=== PATIENT | female | born 2000 | race Caucasian/White ===

== ENCOUNTER 2019-12-12 19:04 | Emergency (ER) | payer SELFPAY ==
[~2019-12-12] VITALS: Ht 165.1 cm; Wt 59.0 kg
--- NOTE | 2019-12-12 19:24 | PHYS DOC ---
General Adult EDM: Chief Complaint: ANXIETY/PANIC ATTACK HPI: HPI: Patient is a 19 year old female with a past medical history of panic attacks presents via EMS for evaluation after a panic attack. Patient works at [employer]. Per EMS prior to arrival patient was yelled at by a customer. Patient started to hyperventilate and then passed out. EMS states patient has had 2-3 episodes while in transport to the hospital. On arrival patient was yelling and screaming. Her heart rate was in the 180s to 190s. Patient was tachypneic and then passed out. After awaking patient seemed calm heart rate in the 120s. Patient nonverbal. Patient moves all extremities no focal weakness. Review of Systems: Review of Systems: Noncontributory due to medical condition Heart Score: Risk Factors: Risk Factors: DM, Current or recent (<one month) smoker, HTN, HLP, family his tory of CAD, obesity. Risk Scores: Score 0 - 3: 2.5% MACE over next 6 weeks - Discharge Home Score 4 - 6: 20.3% MACE over next 6 weeks - Admit for Clinical Observation Score 7 - 10: 72.7% MACE over next 6 weeks - Early Invasive Strategies Physical Exam: PE: Constitutional: Well developed, well nourished, no acute distress, non-toxic appearance. [] HENT: Normocephalic, atraumatic, bilateral external ears normal, oropharynx moist, no oral exudates, nose normal. [] Eyes: PERRLA, EOMI, conjunctiva normal, no discharge. [] Neck: Normal range of motion, no tenderness, supple, no stridor. [] Cardiovascular: Tachycardia Lungs & Thorax: Bilateral breath sounds clear to auscultation [] Abdomen: Bowel sounds normal, soft, no tenderness, no masses, no pulsatile masses. [] Skin: Warm, dry, no erythema, no rash. [] Back: No tenderness, no CVA tenderness. [] Extremities: No tenderness, no cyanosis, no clubbing, ROM intact, no edema. [] Neurologic: Alert normal motor function, normal sensory function, no focal deficits noted. [] Psychologic: Anxious EKG: EKG: [] Radiology/Procedures: Radiology/Procedures: [] Course & Med Decision Making: Course & Med Decision Making Pertinent Labs and Imaging studies reviewed. (See chart for details) []Re-examination at 2115 Patient axox4 able to provide history states she feels better states in past she has taken xanax for acute anxiety attack Will Rx xanax Refer to PCP [place] Disclaimer: Neeta Disclaimer: This electronic medical record was generated, in whole or in part, using a voice recognition dictation system. Departure Departure Impression: Primary Impression: Anxiety attack Disposition: HOME, SELF-CARE Condition: STABLE Patient Instructions: Anxiety and Panic Attacks Scripts Alprazolam (XANAX) 0.5 Mg Tablet 1 TAB PO PRN 3-4XD PRN for ANXIETY / AGITATION, #10 TAB Prov: HAILEY FERRARI DO 12/12/19 Justicifation of Admission Dx: Justifications for Admission: Justification of Admission Dx: N/A HAILEY FERRARI DO Dec 12, 2019 19:24
[2019-12-12] MEDS ORDERED: IV NORMAL SALINE 1000ML BAG 1,000 ML IV ONE (19:30)
[2019-12-12] MEDS ORDERED: ALPR0.5T PO (21:18)
[2019-12-12 21:27] VITALS: BP 128/78
== END 2019-12-12 21:40 | disposition home or self-care (01) ==
LOC: ER 19:04
DX: F41.8 Other specified anxiety disorders (principal)
CPT/HCPCS: 96361; 96374; 99285; J2060; J7030